=== PATIENT | female | born 1960 | race Caucasian/White ===

== ENCOUNTER → 2016-09-19 | Outpatient (CLI) | payer MEDICARE, BC ==
[2016-09-19 18:10] LABS: Basophils % (A) 1 %; CH 33.1; CHCM 33.3; Eosinophils # (A) 0.2 k/uL (0-0.7); Eosinophils % (A) 2 %; HDW 2.24; HGB 16.1 gm/dL (11.4-16.0); Luc # (Auto) 0.12; Luc % (Auto) 2; Lymphocytes # (A) 2.4 k/uL (1.0-4.8); Lymphocytes % (A) 33 %; MCH 32.1 pg (25.0-35.0); MCHC 32.1 g/dL (31.0-37.0); MCV 99.9 fL (80.0-100.0); Monocytes # (A) 0.4 k/uL (0-1.0); Monocytes % (A) 5 %; Neutrophils # (A) 4.3 k/uL (1.3-7.7); Neutrophils % (A) 58 %; RBC 5.01 m/uL (3.80-5.40); RDW 12.7 % (11.5-15.5); WBC 7.4 k/uL (3.8-10.6); WBC (Perox) 7.15
[2016-09-19 19:08] LABS: Erythrocyte Sedimentation Rate 8 mm/hr (0-20)
[2016-09-19 19:15] LABS: Hemoglobin A1C 5.2 % (4.2-6.1)
[2016-09-19 19:39] LABS: Vitamin B12 819 pg/mL (239-931)
[2016-09-19 20:17] LABS: ALT 32 U/L (9-52); AST 18 U/L (14-36); Alkaline Phosphatase 44 U/L (38-126); Anion Gap 12 mmol/L; Blood Urea Nitrogen 18 mg/dL (7-17); Calcium 9.6 mg/dL (8.4-10.2); Carbon Dioxide 18 mmol/L (22-30); Chloride 113 mmol/L (98-107); Creatine Kinase 25 U/L (30-135); Glucose 94 mg/dL (74-99); Magnesium 1.7 mg/dL (1.6-2.3); Non-African American GFR(MDRD) 57 (>60 ml/min/1.73 sqM); Potassium 3.7 mmol/L (3.5-5.1); Sodium 143 mmol/L (137-145); Total Bilirubin 0.6 mg/dL (0.2-1.3); Total Protein 6.6 g/dL (6.3-8.2)
[2016-09-19 20:25] LABS: C Reactive Protein <5.0 mg/L (<10.0)
[2016-09-22 09:43] LABS: Vitamin E (Alpha Tocopherol) 1665 ug/dL (500-1800)
[2016-09-28 19:39] LABS: Vitamin K 363 pg/mL (80-1160)
== END | disposition home or self-care (01) ==
LOC: LABWHC1 17:17
PROVIDERS: ATTEND Psychiatry & Neurology Pain Medicine
DX: G62.9 Polyneuropathy, unspecified (principal); R41.3 Other amnesia; Z79.899 Other long term (current) drug therapy
CPT/HCPCS: 36415; 80053; 82306; 82550; 82607; 83036; 83519; 83735; 84207; 84425; 84439; 84443; 84446; 84481; 84590; 84591; 84597; 85025; 85652; 86140

== ENCOUNTER → 2016-09-30 | Outpatient (CLI) | payer MEDICARE, BC ==
[2016-09-30 17:03] LABS: Blood Urea Nitrogen 15 mg/dL (7-17); Non-African American GFR(MDRD) 57 (>60 ml/min/1.73 sqM)
== END ==
LOC: LABWHC1 16:10
PROVIDERS: ATTEND Psychiatry & Neurology Neurology
DX: Z01.818 Encounter for other preprocedural examination (principal); R94.4 Abnormal results of kidney function studies
CPT/HCPCS: 36415; 82565; 84520

== ENCOUNTER → 2017-09-08 | Outpatient (CLI) | payer MEDICARE, BC ==
[2017-09-08 14:33] LABS: Basophils # (A) 0.1 k/uL (0-0.2); Basophils % (A) 1 %; Eosinophils # (A) 0.2 k/uL (0-0.7); Eosinophils % (A) 3 %; HCT 42.8 % (34.0-46.0); HGB 13.2 gm/dL (11.4-16.0); Lymphocytes # (A) 1.6 k/uL (1.0-4.8); Lymphocytes % (A) 22 %; MCH 32.2 pg (25.0-35.0); MCHC 30.8 g/dL (31.0-37.0); MCV 104.4 fL (80.0-100.0); Macrocytosis Slight; Mean Platelet Volume 7.6; Monocytes # (A) 0.5 k/uL (0-1.0); Monocytes % (A) 6 %; Neutrophils # (A) 4.7 k/uL (1.3-7.7); Neutrophils % (A) 66 %; Platelet Count 231 k/uL (150-450); RDW 12.7 % (11.5-15.5); WBC 7.1 k/uL (3.8-10.6)
[2017-09-08 14:39] LABS: ALT 18 U/L (9-52); AST 16 U/L (14-36); Albumin 4.2 g/dL (3.5-5.0); Alkaline Phosphatase 64 U/L (38-126); Anion Gap 11 mmol/L; Blood Urea Nitrogen 16 mg/dL (7-17); Calcium 9.8 mg/dL (8.4-10.2); Carbon Dioxide 23 mmol/L (22-30); Chloride 110 mmol/L (98-107); Glucose 90 mg/dL (74-99); Potassium 4.6 mmol/L (3.5-5.1); Sodium 144 mmol/L (137-145); Total Bilirubin 0.5 mg/dL (0.2-1.3); Total Protein 7.2 g/dL (6.3-8.2)
[2017-09-08 14:56] LABS: T4, Free (Free Thyroxine) 3.07 ng/dL (0.78-2.19)
== END | disposition home or self-care (01) ==
LOC: LABWHC1 13:57
PROVIDERS: ATTEND Internal Medicine
DX: E03.9 Hypothyroidism, unspecified (principal); R53.83 Other fatigue
CPT/HCPCS: 36415; 80053; 84439; 84443; 85025

== ENCOUNTER → 2017-10-23 | Outpatient (CLI) | payer MEDICARE, BC ==
[2017-10-23 18:10] LABS: T4, Free (Free Thyroxine) 1.91 ng/dL (0.78-2.19)
== END | disposition home or self-care (01) ==
LOC: LABWHC1 17:14
PROVIDERS: ATTEND Internal Medicine
DX: E03.9 Hypothyroidism, unspecified (principal)
CPT/HCPCS: 36415; 84439; 84443

== ENCOUNTER → 2017-11-14 | Outpatient (CLI) | payer MEDICARE, BC ==
--- NOTE | 2017-11-14 16:42 | CONS ---
CONSULTATION REASON FOR CONSULTATION: Excessive sleepiness. HISTORY OF PRESENT ILLNESS: This is a 57-year-old female patient, who is coming to see me for sleep problem that has been going on for many years. I had this unusual encounter with this patient here in the sleep center as I found this patient to be somewhat inconsistent in her ability to provide history and medical information. First of all, I asked the patient if she had a primary care physician. She refused to give me the name of her primary. She stated that she had been seen extensively at [facility] and she is quite upset with them as the patient did not get an accurate information or solutions to her medical problems. She claims that she has had sleep studies and extensive evaluation for cognitive impairment and memory loss and she thinks the tests were quite abnormal. However she has been told not to have any significant abnormalities. As stated she declined to give me any names for primary care physician whether it is local or it is out of town. She also stated that she was recently going to [facility] and she had 1 encounter and she was asked to come back in followup in 3 months' time. She decided to come into the sleep center for her ongoing problems of sleep. The patient seems to have chronic insomnia. During my brief encounter I came to find out that the patient has not been sleeping at regular times. Her go to bedtime varies between 9:00 pm and 5:00 am in the morning and wake up time also varies considerably. She naps at different hours. She wakes up at different hours and she has been following a very regular sleep-wake cycle for many years. She claims that she used to live in a house in [place] on [address] and she ended up foreclosing on her house and she lost her residence and she stayed homeless for quite some time. Following that her sleep quality got even worse. Currently, she is staying at the [facility] and she does not have a permanent residence. She is taking pain medication including Premier. She has used cannabis in the past and she has smoked marijuana extensively to help her sleep. She has also tried trazodone and Restoril without any significant benefit. The patient failed to give me any information on her past medical history, and nothing is available in the [facility] computer system in terms of any past medical history on the patient. Nevertheless based on medication list, I see the patient is on anticoagulants which she claimed to be related to DVT and pulmonary embolism and she claimed to have a of factor 5 Leiden deficiency and based on her medications it seems that she is being treated for hypothyroidism and depression. I find this patient a bit more psychotic as the patient has some occasional paranoia and she would respond inappropriately to detailed questions whenever she is asked. She denies having any hallucinations, however, she does have some delusional beliefs. She feels that the medical system has not provided any information on her health and she does not really trust any of the medical systems that she has been in the past and she wants to confined at [facility] where she thinks all of her problems are going to be solved. She seems obviously disorganized and at times restless. Based on all this, I do not think she is a candidate for any sleep evaluation. I think the patient will need a psychiatric evaluation. I suggested this to her. However she declined. As we were proceeding with our encounter the patient decided to take off and go back to [facility] rather than being investigated or treated here. I provided my card and I asked the patient to contact me back once further workup has been done at [facility] and her condition has been noted down to certain diagnosis which I think is going to be somewhat psychiatric in nature. I think this patient has a component of psychosis. Probably with an underlying depression/bipolar disorder. Strongly recommend psychiatric evaluation. No further workup was done here at the sleep Center. The patient took off without any followup. JORGE / RACHEL: [id number] /
== END | disposition home or self-care (01) ==
LOC: SLEEP 13:40
PROVIDERS: ATTEND Internal Medicine Critical Care Medicine
DX: F51.04 Psychophysiologic insomnia (principal); F12.90 Cannabis use, unspecified, uncomplicated; Z79.891 Long term (current) use of opiate analgesic
CPT/HCPCS: 99211

== ENCOUNTER → 2018-07-19 | Outpatient (CLI) | payer MEDICARE, BC ==
[2018-07-19 17:01] LABS: Prothrombin Time 10.4 sec (9.0-12.0)
== END | disposition home or self-care (01) ==
LOC: LABWHC1 16:33
PROVIDERS: ATTEND Internal Medicine
DX: F43.10 Post-traumatic stress disorder, unspecified (principal); D68.2 Hereditary deficiency of other clotting factors
CPT/HCPCS: 36415; 85610

== ENCOUNTER 2019-01-29 06:19 | Inpatient (IN) | payer MEDICARE, BC ==
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
[2019-01-29 07:39] LABS: Basophils % (A) 0 %; Eosinophils # (A) 0.1 k/uL (0-0.7); Eosinophils % (A) 1 %; HCT 47.8 % (34.0-46.0); HGB 15.6 gm/dL (11.4-16.0); Lymphocytes # (A) 1.4 k/uL (1.0-4.8); Lymphocytes % (A) 11 %; MCH 32.2 pg (25.0-35.0); MCHC 32.6 g/dL (31.0-37.0); MCV 98.6 fL (80.0-100.0); Monocytes # (A) 0.7 k/uL (0-1.0); Monocytes % (A) 6 %; Neutrophils % (A) 81 %; Platelet Count 210 k/uL (150-450); RBC 4.84 m/uL (3.80-5.40); RDW 12.1 % (11.5-15.5); WBC 12.3 k/uL (3.8-10.6)
[2019-01-29 07:45] LABS: Acetaminophen <10.0 ug/mL; Alcohol <10 mg/dL; Salicylate <1.0 mg/dL
[2019-01-29 07:48] LABS: INR 1.2 (<1.2); Partial Thromboplastin Time 22.1 sec (22.0-30.0)
[2019-01-29] MEDS ORDERED: ENOXAPARIN 80 MG/0.8 ML SYRINGE SQ STA (07:55)
[2019-01-29 08:15] LABS: Appearance,Urine Cloudy (Clear); Bacteria,Urine Rare /hpf; Bilirubin,Urine 1+ (Negative); Blood,Urine Small (Negative); Color,Urine Yellow; Glucose,Urine (UA) Negative (Negative); Hyaline Casts,Urine 173 /lpf (0-2); Ketones,Urine Trace (Negative); Leukocyte Esterase,Urine Small (Negative); Mucus,Urine Many /hpf; Nitrite,Urine Negative (Negative); Protein,Urine 1+ (Negative); RBC,Urine 2 /hpf (0-5); Specific Gravity,Urine 1.025 (1.001-1.035); Squamous Epithelial Cell,Urine 2 /hpf (0-4); WBC,Urine 10 /hpf (0-5)
[2019-01-29 08:17] LABS: Amphetamine Screen,Urine Not Detected (NotDetected); Barbiturate Screen,Urine Not Detected (NotDetected); Benzodiazepines Screen,Urine Not Detected (NotDetected); Cocaine Screen,Urine Not Detected (NotDetected); Methadone Screen, Urine Not Detected (NotDetected); Opiate Screen,Urine Not Detected (NotDetected); Oxycodone Screen, Urine Not Detected (NotDetected); Phencyclidine Screen,Urine Not Detected (NotDetected); Tricyclic Antidepressant,Urine Not Detected (NotDetected); Urn Cannabinoid Scrn Not Detected (NotDetected)
[2019-01-29] MEDS ORDERED: cefTRIAXone IN SWFI 1,000 MG/10 ML SYRINGE IVP STA (10:42)
[2019-01-29] MEDS ORDERED: cefTRIAXone 1,000 MG VIAL (IM USE) IM STA (10:58)
[2019-01-29] MEDS ORDERED: WARFARIN 5 MG TAB PO SCH (11:00)
[2019-01-29] MEDS ORDERED: MAGNESIUM HYDROXIDE 2,400 MG/10 ML CUP PO PRN (11:08)
[2019-01-29] MEDS ORDERED: MAG HYDROX/AL HYDROX/SIMETH 30 ML CUP PO PRN (11:08)
[2019-01-29] MEDS ORDERED: LORazepam 1 MG TAB PO PRN (11:08)
[2019-01-29] MEDS ORDERED: ATORVASTATIN 10 MG TAB PO SCH (11:15)
[2019-01-29] MEDS: FAMOTIDINE 20 MG TAB PO SCH (13:00)
[2019-01-29] MEDS: LEVOTHYROXINE 125 MCG TAB PO SCH (13:01)
[2019-01-29] MEDS: PANTOPRAZOLE 40 MG TABLET PO SCH (13:01)
[2019-01-29] MEDS: SENNOSIDES-DOCUSATE SODIUM 1 EACH TAB PO SCH (13:02)
[2019-01-29] MEDS: LINACLOTIDE 145 MCG PO SCH (13:09)
[2019-01-29 13:22] VITALS: BMI 27.7
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
[2019-01-29] MEDS ORDERED: WARFARIN 7.5 MG TAB PO ONE (18:00)
[2019-01-29] MEDS: ACETAMINOPHEN TAB 325 MG TAB PO PRN ×2 (18:03→23:31)
[2019-01-29 19:50] LABS: Hemoglobin A1C 5.3 % (4.0-6.0)
--- NOTE | 2019-01-29 20:31 | US ---
EXAMINATION TYPE: US venous doppler duplex LE DATE OF EXAM: 01/29/2019 7:10 PM COMPARISON: NONE CLINICAL HISTORY: LE swelling. Bilateral leg swelling x years. Hx DVT bilateral legs. Pt on blood thi nners. SIDE PERFORMED: Bilateral TECHNIQUE: The lower extremity deep venous system is examined utilizing real time linear array sonog lashonda with graded compression, doppler sonography and color-flow sonography. VESSELS IMAGED: External Iliac Vein (EIV) Common Femoral Vein Deep Femoral Vein Greater Saphenous Vein * Femoral Vein Popliteal Vein Proximal Calf Veins (* superficial vessels) FINDINGS: There is no direct or indirect sonographic evidence for filling defect within the deep vein s of the right lower extremity and left lower extremity. IMPRESSION: Negative for DVT, bilateral lower extremities.
[2019-01-29] MEDS: PRAZOSIN 1 MG CAP PO SCH (21:59)
[2019-01-29] MEDS: SULFAMETHOX-TMP 800-160MG 1 EACH TAB PO SCH (22:00)
[2019-01-30] MEDS: LEVOTHYROXINE 125 MCG TAB PO SCH (06:20)
[2019-01-30] MEDS: ACETAMINOPHEN TAB 325 MG TAB PO PRN ×2 (06:20→15:07)
[2019-01-30] MEDS: LINACLOTIDE 145 MCG PO SCH (08:21)
[2019-01-30] MEDS: PANTOPRAZOLE 40 MG TABLET PO SCH (08:21)
[2019-01-30] MEDS: FAMOTIDINE 20 MG TAB PO SCH (08:21)
[2019-01-30] MEDS: SENNOSIDES-DOCUSATE SODIUM 1 EACH TAB PO SCH (08:21)
[2019-01-30] MEDS: SULFAMETHOX-TMP 800-160MG 1 EACH TAB PO SCH ×3 (08:21→22:06)
[2019-01-30] MEDS: MULTIVITAMINS, THERA 1 EACH TAB PO SCH (08:21)
[2019-01-30 12:20] LABS: INR 2.7 (<1.2); Prothrombin Time 26.4 sec (9.0-12.0)
[2019-01-30 12:30] LABS: Albumin 3.8 g/dL (3.5-5.0); Calcium 9.2 mg/dL (8.4-10.2); Potassium 4.2 mmol/L (3.5-5.1); Total Bilirubin 0.3 mg/dL (0.2-1.3); Total Protein 6.4 g/dL (6.3-8.2)
--- NOTE | 2019-01-30 13:29 | P.PN ---
Progress Note - Text Progress Note Date: 01/30/19 Interval History: Patient is a 58-year-old female whose approach today and she refused to speak with me. Mental Status: Patient was sitting in a recliner, in no acute distress reading a book, refused to speak with me or come to the interview room. Assessment: Patient refused to discuss her discharge plans with social work and refused to speak with me. In team treatment meeting community mental health liaison confirmed that the patient had been referred there for intake and 2013 and 2014 but it never complied with those intake appointment. Plan: She refused all medication yesterday, is refusing to discuss her discharge plans with social work and refused to speak with me today. Patient did sign in as a voluntary patient, we will continue to evaluate the patient if she is not a danger to self or others, able to take care of her daily needs and continues to refuse medication will consider discharge by the end of the week.
[2019-01-30] MEDS: NICOTINE 14MG/24HR PATCH TRANSDERM SCH (15:23)
[2019-01-30] MEDS ORDERED: WARFARIN 2.5 MG TAB PO ONE (18:00)
[2019-01-30] MEDS: PRAZOSIN 1 MG CAP PO SCH (21:17)
[2019-01-31] MEDS: ACETAMINOPHEN TAB 325 MG TAB PO PRN ×4 (00:44→21:53)
[2019-01-31] MEDS: LEVOTHYROXINE 125 MCG TAB PO SCH (06:12)
[2019-01-31 08:06] LABS: INR 2.5 (<1.2); Prothrombin Time 23.9 sec (9.0-12.0)
[2019-01-31] MEDS: LINACLOTIDE 145 MCG PO SCH (08:16)
[2019-01-31] MEDS: PANTOPRAZOLE 40 MG TABLET PO SCH (08:17)
[2019-01-31] MEDS ORDERED: NICOTINE 14MG/24HR PATCH TRANSDERM SCH (09:00)
[2019-01-31] MEDS: SULFAMETHOX-TMP 800-160MG 1 EACH TAB PO SCH ×2 (10:02→21:51)
[2019-01-31] MEDS: SENNOSIDES-DOCUSATE SODIUM 1 EACH TAB PO SCH (10:02)
[2019-01-31] MEDS: MULTIVITAMINS, THERA 1 EACH TAB PO SCH (10:02)
[2019-01-31] MEDS: NICOTINE 14MG/24HR PATCH TRANSDERM SCH (10:03)
[2019-01-31] MEDS: FAMOTIDINE 20 MG TAB PO SCH (10:03)
--- NOTE | 2019-01-31 13:10 | P.PN ---
Progress Note - Text Progress Note Date: 01/31/19 Interval History: Patient is a 58-year-old female who was seen today and she reports that she is doing fairly well, stated that she really doesn't know why she is here either other than that she was told if she didn't sign in that she would be committed. Patient states that she is eating, attending some groups and activities. Patient when questioned states that she won't call the motel where she was living because she is afraid of the intermodal owner operator truck driver's and states that she can contact the police to assist her because her car isn't licensed correctly and she does not have a valid drivers license and this is why she was put in prison over the weekend. Patient also will not explain to me if she has access to money or not and becomes quite vague when I question her about where she could live other than returning to the motel she has been living at for the last 5 years. Patient also states that she does not require her medications to be adjusted and does not wish to discuss any new medication. Mental Status:Appearance/Attitude: Patient is dressed in a hospital gown, makes eye contact and is superficially cooperative Behavior: Patient does not exhibit any psychomotor agitation or retardation. Speech/Language: Patient's speech is spontaneous, slightly pressured of normal volume and rhythm and she is coherent Thought Process: Patient is goal-directed at times she becomes tangential and circumstantial but there is no evidence of flight of ideas or racing thoughts Thought Content: Patient denies any auditory or visual hallucinations and no paranoid or delusional ideation is elicited. Patient is vague when responding to questions regarding access to money and funds, stating that she has no place to live because she is afraid to return to the motel where she's been living for 5 years because she is afraid of the intermodal owner operator truck driver's . Patient states she also doesn't want to call the police because her car is not licensed correctly and she does not have a valid drivers license. Patient states she has nowhere else to live no family and no friends and she states she has no friends because her cell phone access where she was living is weak. Patient states that she has no place to go when she is discharged. Patient also states that she doesn't have wish to having her medications adjusted and refuses to discuss any changes to her medications with me. Patient slept for 5 hours last night and is eating Suicidal/Homicidal Ideation: Patient denies any current suicidal or homicidal ideation Sensorium/Cognition: Patient is alert and oriented to person, place, and time and her recent and remote memory are grossly intact Mood/Affect: Patient's mood is pleasant and her affect is appropriate Insight/Judgment: Patient's insight and judgment are fair Assessment: Patient continues to be vague about her access to money, stating that she has no place to live and states that she can't return to the [facility] where she's been living for the last 5 years due to being frightened of the intermodal owner operator truck driver's . 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 Patient states that she's been going to [facility] for her care and needs to pay bills that are due and needs access to her phone but then states that she doesn't have any funds. Patient states she has no family or friends that she can contact and provide housing on a temporary basis. Patient also refuses to discuss medications with me stating that she doesn't need her medications adjusted. Patient is currently not psychotic, she is not currently suicidal or homicidal. Plan: Patient will continue on her current medications that she is refusing any adjustments, I discussed with the patient that as she is not currently suicidal or homicidal and not psychotic and she does not meet the requirements to continue to stay in the hospital if she is refusing to allow me to adjust any of her medications. Patient states she is agreed with me but she has no place to go. I spoke with the community mental health social worker will continue to work on attempting to find out if the patient has access to money and possible discharge housing.
[2019-01-31] MEDS ORDERED: WARFARIN 2.5 MG TAB PO ONE (18:00)
[2019-01-31] MEDS: PRAZOSIN 1 MG CAP PO SCH (21:51)
[2019-02-01] MEDS: ACETAMINOPHEN TAB 325 MG TAB PO PRN ×4 (02:40→20:16)
[2019-02-01] MEDS: LEVOTHYROXINE 125 MCG TAB PO SCH (06:25)
[2019-02-01] MEDS: FAMOTIDINE 20 MG TAB PO SCH (08:08)
[2019-02-01] MEDS: LINACLOTIDE 145 MCG PO SCH (08:08)
[2019-02-01] MEDS: NICOTINE 14MG/24HR PATCH TRANSDERM SCH (08:14)
[2019-02-01] MEDS: MULTIVITAMINS, THERA 1 EACH TAB PO SCH (08:15)
[2019-02-01] MEDS: SENNOSIDES-DOCUSATE SODIUM 1 EACH TAB PO SCH (08:15)
[2019-02-01] MEDS: PANTOPRAZOLE 40 MG TABLET PO SCH (08:15)
[2019-02-01] MEDS: SULFAMETHOX-TMP 800-160MG 1 EACH TAB PO SCH (08:15)
[2019-02-01 09:57] LABS: INR 1.9 (<1.2); Prothrombin Time 19.1 sec (9.0-12.0)
--- NOTE | 2019-02-01 13:00 | P.PN ---
Progress Note - Text Progress Note Date: 02/01/19 Interval History: Patient is a 58-year-old female who was seen today who states that she has no place to live, has no friends that can go and obtain her belongings at the [facility] and states that she is not going to call the police to get them because she has incorrect license plates on her car and no shuttle bus driver's license. Patient states that she contacted multiple shelters yesterday but there is no room. Patient states that she wants to be on Topamax now and states that she doesn't want to consider other mood stabilizers. Patient states that she does not have bipolar disorder but only PTSD. Mental Status: Appearance/Attitude: Patient is dressed in a hospital gown, makes eye contact and was cooperative Behavior: Patient does not exhibit any psychomotor agitation or retardation Speech/Language: Patient's speech is spontaneous, slightly pressured of normal volume and she is coherent. Patient states she is speaking better here because she is in a safe environment. Thought Process: Patient is goal-directed there is no evidence of loose association or flight of ideas Thought Content: Patient denies any auditory or visual hallucinations and no delusions or paranoid ideation or elicited. Patient states that she'd like to start Topamax because that's what worked for her in the past even though she told me she did not want to restart that on admission. Patient states she does not have bipolar disorder only PTSD and that the Topamax treated her depression. Patient states that she has no place to live and no friends who can assist her in getting her belongings from the [facility] motel and she doesn't feel safe going there on her own. She states she is sleeping and eating well here. Suicidal/Homicidal Ideation: Patient denies any current suicidal or homicidal ideation Sensorium/Cognition: Patient is alert and oriented to person, place and time and her recent and remote memory are grossly intact Mood/Affect: Patient's mood is pleasant and her affect is appropriate Insight/Judgment: Patient's insight and judgment are fair Assessment: Patient today reports that she liked the start Topamax, patient states she has no place to live, no shelters had any room and she has no family or friends and can assist her in getting her belongings from the [place] [facility] motel. Patient states that she can't call the police to go and obtain her belongings there because she is afraid of the optometrist president/practice owner and the police will arrest her again for having the wrong tags and license on her car. Patient states she wishes to start Topamax because it treated her depressive symptoms in the past and that she only has PTSD not bipolar disorder. Plan: Patient will be started on Topamax 25 mg twice a day and slowly titrated, patient and I discussed that I would restart her Topamax and reviewed the use and side effects of the medication and that she needs to consider where she is going to live when she is released from the hospital. Patient requires hospitalization to stabilize her on the Topamax,
[2019-02-01] MEDS ORDERED: WARFARIN 5 MG TAB PO ONE (18:00)
[2019-02-01] MEDS: PRAZOSIN 1 MG CAP PO SCH (21:35)
[2019-02-01] MEDS: TOPIRAMATE 25 MG TAB PO SCH (21:35)
[2019-02-02] MEDS: ACETAMINOPHEN TAB 325 MG TAB PO PRN ×5 (01:50→23:08)
[2019-02-02] MEDS: LEVOTHYROXINE 125 MCG TAB PO SCH (06:40)
[2019-02-02] MEDS: LINACLOTIDE 145 MCG PO SCH (08:12)
[2019-02-02] MEDS: NICOTINE 14MG/24HR PATCH TRANSDERM SCH (08:12)
[2019-02-02] MEDS: PANTOPRAZOLE 40 MG TABLET PO SCH (08:12)
[2019-02-02] MEDS: MULTIVITAMINS, THERA 1 EACH TAB PO SCH (08:12)
[2019-02-02] MEDS: SENNOSIDES-DOCUSATE SODIUM 1 EACH TAB PO SCH (08:12)
[2019-02-02] MEDS: FAMOTIDINE 20 MG TAB PO SCH (08:12)
[2019-02-02 08:13] LABS: INR 1.8 (<1.2); Prothrombin Time 17.9 sec (9.0-12.0)
[2019-02-02] MEDS: TOPIRAMATE 25 MG TAB PO SCH ×2 (08:13→23:07)
--- NOTE | 2019-02-02 16:22 | P.PN ---
Progress Note - Text Progress Note Date: 02/02/19 Interval history: Patient is seen in [facility] today. Inquires about the Topamax and we discussed that she is currently on 25 mg twice a day. She does describe some ongoing pain issues. She does not seem to voice any specific psychotropic medication side effects. Mental status exam: She is alert and cooperative with the interview her speech is fluent, somewhat pressured. Her thought processes show some disorganization and tangential in nature at times. She denies any thoughts of harm to others, when asked about thoughts of harm to self she goes on to talk about something else and does not directly answer. Regarding her mood she at one point during the session talks about despair. She does not show any significant agitation. Plan: Patient will be maintained on current psychotropic medication regimen. We'll continue to monitor for any medication side effects and monitor her ongoing response to treatment. We'll continue to cover this patient through the weekend.
[2019-02-02] MEDS ORDERED: WARFARIN 10 MG TAB PO ONE (18:00)
[2019-02-02] MEDS: PRAZOSIN 1 MG CAP PO SCH (23:11)
[2019-02-03] MEDS: LEVOTHYROXINE 125 MCG TAB PO SCH (05:53)
[2019-02-03] MEDS: ACETAMINOPHEN TAB 325 MG TAB PO PRN ×3 (06:36→17:28)
[2019-02-03] MEDS: PANTOPRAZOLE 40 MG TABLET PO SCH (07:55)
[2019-02-03] MEDS: LINACLOTIDE 145 MCG PO SCH (07:55)
[2019-02-03 08:25] LABS: INR 1.9 (<1.2); Prothrombin Time 18.5 sec (9.0-12.0)
[2019-02-03] MEDS: NICOTINE 14MG/24HR PATCH TRANSDERM SCH (09:39)
[2019-02-03] MEDS: MULTIVITAMINS, THERA 1 EACH TAB PO SCH (09:40)
[2019-02-03] MEDS: SENNOSIDES-DOCUSATE SODIUM 1 EACH TAB PO SCH (09:40)
[2019-02-03] MEDS: FAMOTIDINE 20 MG TAB PO SCH (09:40)
[2019-02-03] MEDS: TOPIRAMATE 25 MG TAB PO SCH (09:40)
--- NOTE | 2019-02-03 14:55 | P.PN ---
Progress Note - Text Progress Note Date: 02/03/19 Interval history: [place] [facility] [place] She does not verbalize any adverse psychotropic medication side effects. She states that her Minipress was held last night because of her low blood pressure. She states she didn't sleep that well last night. She has been doing some reading today. Mental status exam: She is alert and cooperative with the interview. Her speech is fluent, seems less pressured today. Her thought processes he still show some disorganization. She denies any thoughts of harm to others. Regarding thoughts of harm to herself she says she is 'at her end,' regarding harm to herself she relays that there is nothing that you can do here in the hospital. She states that she does feel safe here in the hospital. She does not show any agitation. Plan: Patient will be maintained on current psychotropic medication regimen. We will continue to monitor for any medication side effects, monitor regarding any thoughts of suicide. We'll monitor her ongoing response to treatment.
[2019-02-03] MEDS ORDERED: WARFARIN 10 MG TAB PO ONE (18:00)
[2019-02-04] MEDS: PRAZOSIN 1 MG CAP PO SCH ×2 (02:08→22:52)
[2019-02-04] MEDS: TOPIRAMATE 25 MG TAB PO SCH ×3 (02:08→20:59)
[2019-02-04] MEDS: LEVOTHYROXINE 125 MCG TAB PO SCH (06:25)
[2019-02-04] MEDS: ACETAMINOPHEN TAB 325 MG TAB PO PRN ×3 (06:48→17:09)
[2019-02-04] MEDS: LINACLOTIDE 145 MCG PO SCH (08:01)
[2019-02-04] MEDS: NICOTINE 14MG/24HR PATCH TRANSDERM SCH (08:35)
[2019-02-04] MEDS: MULTIVITAMINS, THERA 1 EACH TAB PO SCH (08:36)
[2019-02-04] MEDS: FAMOTIDINE 20 MG TAB PO SCH (08:36)
[2019-02-04] MEDS: SENNOSIDES-DOCUSATE SODIUM 1 EACH TAB PO SCH (08:36)
[2019-02-04] MEDS: PANTOPRAZOLE 40 MG TABLET PO SCH (08:36)
[2019-02-04 09:53] LABS: INR 2.1 (<1.2)
--- NOTE | 2019-02-04 13:30 | P.PN ---
Progress Note - Text Progress Note Date: 02/04/19 Interval History: Patient is a 58-year-old female who was seen today who states that she found out that her car is not at the [facility] and suspects that it's been impounded. She states that she wants to relocate to [facility] because she is supposed to have dental work done here at the [facility]. Patient states that she is too afraid to call the motel to find out what's going on with her belongings. She complains that they have been stealing from her for years. Patient states that she doesn't have any plans as to where to live in [facility], wants to follow up with community mental health that she wants someone to help her get in the mental health court. Mental Status: Appearance/Attitude: Patient is dressed in a hospital gown, makes eye contact and is cooperative Behavior: Patient does not display any psychomotor agitation or retardation. Speech/Language: Patient's speech is spontaneous of normal volume and rhythm and she is coherent Thought Process: Patient is goal-directed, she is less tangential today but occasionally will become vague in her responses Thought Content: Patient denies any auditory or visual hallucinations and no delusions or paranoid ideation is elicited. Patient has been sleeping well and eating well. She talks about wanting to move to [facility] because that's where she's going to have dental work done. She states that she thinks her car is impounded because it's no longer at the [facility]. Patient also states that she is too afraid to call there to see what happened to her belongings. Patient states that she wants to follow up with community mental health because she wants assistance in getting into mental health court. Suicidal/Homicidal Ideation: Patient denies any current suicidal or homicidal ideation. Sensorium/Cognition: Patient is alert and oriented to person, place and time and her recent and remote memory are grossly intact Mood/Affect: Patient's mood is bland and her affect is appropriate Insight/Judgment: Since insight and judgment are fair Assessment: Patient states that she wants to live in [facility] because she is going to have dental work done in [place] at the [facility] and feels that she be better off living closer by. She states she had someone check and her car is no longer at the motel and so she suspects its been impounded. Patient wants to follow up with community mental health and she wants help in getting into mental health court. Patient states that she is too afraid to call the motel to find out what's happened to her belongings. Patient remains vague at times about how she is going to obtain housing in another [facility] without transportation and then states just leave it to me. I discussed with the patient that we need to consider discharge and that she needs to find housing and a way to get to [facility] prior to her discharge. Plan: Patient will continue on prazosin 5 mg at bedtime and will increase her Topamax to 50 mg twice a day. Patient continues to require inpatient hospitalization but we discussed discharge by mid week.
[2019-02-04] MEDS ORDERED: WARFARIN 10 MG TAB PO ONE (18:00)
[2019-02-05] MEDS ORDERED: diphenhydrAMINE 50 MG CAP PO STA (04:01)
[2019-02-05] MEDS: ACETAMINOPHEN TAB 325 MG TAB PO PRN ×3 (04:15→17:37)
[2019-02-05] MEDS: LEVOTHYROXINE 125 MCG TAB PO SCH (05:58)
[2019-02-05] MEDS: MULTIVITAMINS, THERA 1 EACH TAB PO SCH (08:51)
[2019-02-05] MEDS: SENNOSIDES-DOCUSATE SODIUM 1 EACH TAB PO SCH (08:51)
[2019-02-05] MEDS: TOPIRAMATE 25 MG TAB PO SCH ×2 (08:51→21:59)
[2019-02-05] MEDS: NICOTINE 14MG/24HR PATCH TRANSDERM SCH (08:51)
[2019-02-05] MEDS: PANTOPRAZOLE 40 MG TABLET PO SCH (08:51)
[2019-02-05] MEDS: LINACLOTIDE 145 MCG PO SCH (08:55)
[2019-02-05 11:48] LABS: INR 2.2 (<1.2); Prothrombin Time 21.3 sec (9.0-12.0)
--- NOTE | 2019-02-05 13:31 | P.PN ---
Progress Note - Text Progress Note Date: 02/05/19 Interval History: Patient is a 58-year-old female who was seen today and states that she needs help making a phone call to get into [facility] so that she can have them assist her in mental health court. Patient states that she was disqualified 5 years ago by [facility] and they didn't help her them with mental health court. In trying to discuss this with the patient I talked with her about the fact that [facility] needs to be taking care of your in the [facility] in which she live and yesterday she stated that she wanted to move to [facility] not [facility] and now the patient is staying that she wants assistance from [facility] in mental health court here. When I stated that we could certainly try to a rrange an intake for [facility] prior to her discharge she stated that she needs help making that phone call. Patient then became frustrated because no one was helping her make a phone call and decided that she would not stay here but moved to [facility] anyway. Mental Status: Appearance/Attitude: Patient is dressed in a hospital gown, makes eye contact and is cooperative Behavior: Patient does not exhibit any psychomotor agitation or retardation Speech/Language: Patient's speech is spontaneous of normal volume and rhythm and she is coherent Thought Process: Patient is tangential and vague in responding to questions Thought Content: Patient denies any auditory or visual hallucinations and no delusions or paranoid ideation or elicited. Patient went round and round with me about needing assistance making up phone call to have [facility] qualify her so they can help her in mental health court. She refers back to 5 years ago when she was charged with something that she can't tell me about complaining that she had problems with her memory 10 and so doesn't recall what the situation was. Patient remains vague when discussing these issues always complaining that she had medical problems that caused her to have memory problems. Suicidal/Homicidal Ideation: Patient denies any current suicidal or homicidal ideation Sensorium/Cognition: Patient is alert and oriented to person, place and time Mood/Affect: Patient's mood is superficially cooperative her affect is appropriate to her mood Insight/Judgment: Patient's insight and judgment are fair Assessment: Patient today complained that no one was assisting her in making a phone call so that she could have [facility] qualify her to help her get into mental health court. Patient then discussed 5 years ago when she was disqualified from [facility] for services and they didn't help her get into mental health court. When I stated to the patient that she needs to receive services in the county she's residing in and that she is planning to move to [facility] she spends stated that she could stay here temporarily of someone would help her with a phone call and that no one has been assisting her with phone calls. Patient then stated that she would leave and go to [facility]. Patient is attending some groups and activities. Plan: Patient continues on Topamax 50 mg twice a day, patient does not wish any further medication adjustments at this time. I discussed with the patient that I would be planning on her discharge on and that she needs aside which county she is going to live in so that she can be referred for outpatient services.
[2019-02-05] MEDS ORDERED: WARFARIN 10 MG TAB PO ONE (18:00)
[2019-02-05] MEDS: PRAZOSIN 1 MG CAP PO SCH (21:59)
[2019-02-06] MEDS: LEVOTHYROXINE 125 MCG TAB PO SCH (06:26)
[2019-02-06] MEDS: ACETAMINOPHEN TAB 325 MG TAB PO PRN ×2 (06:29→19:24)
[2019-02-06] MEDS: TOPIRAMATE 25 MG TAB PO SCH ×2 (08:14→21:52)
[2019-02-06] MEDS: NICOTINE 14MG/24HR PATCH TRANSDERM SCH (08:14)
[2019-02-06] MEDS: SENNOSIDES-DOCUSATE SODIUM 1 EACH TAB PO SCH (08:14)
[2019-02-06] MEDS: MULTIVITAMINS, THERA 1 EACH TAB PO SCH (08:14)
[2019-02-06] MEDS: PANTOPRAZOLE 40 MG TABLET PO SCH (08:15)
[2019-02-06] MEDS: LINACLOTIDE 145 MCG PO SCH (08:15)
[2019-02-06 10:44] LABS: INR 2.3 (<1.2); Prothrombin Time 22.3 sec (9.0-12.0)
--- NOTE | 2019-02-06 12:36 | P.PN ---
Progress Note - Text Progress Note Date: 02/06/19 Interval History: Patient is a 58-year-old female who was seen today who continues to complain that people are waiting until the last minute to assist her with her discharge plans. She continues to insist that 5 years ago [facility] disqualified her for mental health court. Patient also discussed that she has been feeling dizzy and lightheaded for some time and had been using prazosin not only intermittent at bedtime but also during the day for her nightmares. Patient states that she will go to [facility] after discharge. She states that she has not been able to make calls about her belongings cousin peers are always yelling in the background and other people are using the phones. Mental Status: Appearance/Attitude: Patient is dressed in hospital gown, makes intermittent eye contact and was cooperative Behavior: Patient does not display any psychomotor agitation or retardation Speech/Language: Patient's speech is spontaneous of normal volume and rhythm and she is coherent Thought Process: Patient is goal-directed but very vague in her responses, no evidence of loose association or flight of ideas Thought Content: Patient denies auditory or visual hallucinations and no delusions or paranoid ideation or elicited. Patient complains that she has not been able to make any phone calls about her belongings because other patients or yelling in the background or using the phone, that we've waited until the last minute to arrange for outpatient aftercare, that when she was in Court 5 years ago she was given a paper that said that [facility] head disqualified her from going to mental health court. Patient reports that she is sleeping and eating well. Suicidal/Homicidal Ideation: Patient denies any current suicidal or homicidal ideation Sensorium/Cognition: Patient is alert and oriented to person, place and time and her recent and remote memory are grossly intact Mood/Affect: Patient's mood is bland her affect is blunted Insight/Judgment: Patient's insight and judgment are fair Assessment: Patient continues to be vague in her responses, continues to insist that [facility] disqualified her 5 years ago for mental health court and also complains that she's not been able to make phone calls because people are yelling in the background or using the phone. Patient states she doesn't have any idea what occurred to her belongings that were left at the motel and has not made any phone calls to find out about them. Patient states today that she will go to [facility] after discharge from the hospital. Patient was encouraged again to call the motel where her belongings are. Patient's blood pressure has been running low and the prazosin at night is been held and was decreased to 1 mg last night. Patient states she is not feeling as lightheaded this morning. Plan: Patient continues on Topamax 50 mg twice a day and the prazosin was decreased to 1 mg at bedtime, patient has been encouraged to continue drinking fluids and states that she is not feeling as lightheaded or dizzy. Patient and I discussed that she will be discharged tomorrow and she is stating that she will go to [facility] after discharge.
[2019-02-06] MEDS ORDERED: WARFARIN 7.5 MG TAB PO ONE (18:00)
[2019-02-06] MEDS: PRAZOSIN 1 MG CAP PO SCH (21:52)
[2019-02-07 04:30] VITALS: BP 102/61; PULSE 58; RESP 16; TEMP 98
[2019-02-07] MEDS: LEVOTHYROXINE 125 MCG TAB PO SCH (06:02)
[2019-02-07] MEDS: ACETAMINOPHEN TAB 325 MG TAB PO PRN ×2 (06:07→11:12)
[2019-02-07] MEDS: TOPIRAMATE 25 MG TAB PO SCH (08:12)
[2019-02-07] MEDS: NICOTINE 14MG/24HR PATCH TRANSDERM SCH (08:12)
[2019-02-07] MEDS: MULTIVITAMINS, THERA 1 EACH TAB PO SCH (08:12)
[2019-02-07] MEDS: PANTOPRAZOLE 40 MG TABLET PO SCH (08:12)
[2019-02-07] MEDS: SENNOSIDES-DOCUSATE SODIUM 1 EACH TAB PO SCH (08:12)
[2019-02-07] MEDS: LINACLOTIDE 145 MCG PO SCH (08:12)
[2019-02-07 10:12] LABS: Prothrombin Time 19.3 sec (9.0-12.0)
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
[2019-02-07] MEDS ORDERED: WARFARIN 7.5 MG TAB PO ONE (18:00)
== END 2019-02-07 14:36 | disposition home or self-care (01) | DRG 885 ==
LOC: EC 06:19 → 3MHU 10:49
PROVIDERS: ADMIT Psychiatry & Neurology Psychiatry; ATTEND Psychiatry & Neurology Psychiatry
DX: F31.10 Bipolar disorder, current episode manic without psychotic features, unspecified (principal); E03.9 Hypothyroidism, unspecified; F17.200 Nicotine dependence, unspecified, uncomplicated; F20.9 Schizophrenia, unspecified; F43.10 Post-traumatic stress disorder, unspecified; Z79.01 Long term (current) use of anticoagulants; Z86.711 Personal history of pulmonary embolism; Z86.718 Personal history of other venous thrombosis and embolism; Z88.1 Allergy status to other antibiotic agents; Z88.5 Allergy status to narcotic agent; Z88.8 Allergy status to other drugs, medicaments and biological substances; Z59.0 Homelessness
CPT/HCPCS: 36415; 80053; 80061; 80306; 80320; 80329; 81001; 82075; 83036; 83520; 84443; 85025; 85610; 85730; 87086; 93970; 96372; 99285